=== PATIENT | male | born 2000 | race Caucasian/White ===

== ENCOUNTER 2020-09-21 11:11 | Outpatient (REF) | payer OTHER, SELFPAY | END 2020-09-21 11:12 | disposition home or self-care (01) | LOC: HO.LAB 11:11 | PROVIDERS: Visit Provider Internal Medicine | DX: Z20.828 Contact with and (suspected) exposure to other viral communicable diseases (principal) | CPT/HCPCS: C9803; U0003 ==

== ENCOUNTER 2020-10-02 17:01 | Outpatient (REF) | payer OTHER, SELFPAY | END 2020-10-02 17:02 | disposition home or self-care (01) | LOC: HO.LAB 17:01 | PROVIDERS: Visit Provider Internal Medicine | DX: Z20.828 Contact with and (suspected) exposure to other viral communicable diseases (principal) | CPT/HCPCS: C9803; U0003 ==

== ENCOUNTER → 2024-04-16 14:48 | Outpatient (BNVA) | payer SELFPAY | PROVIDERS: Visit Provider Registered Nurse | DX: Z02.79 Encounter for issue of other medical certificate (principal) ==

== ENCOUNTER 2024-06-06 21:18 | Emergency (ER) | payer OTHER, SELFPAY ==
--- NOTE | ~2024-06-06 | CT_ITS ---
EXAMINATION CT HEAD WITHOUT CONTRAST CLINICAL INFORMATION: Trauma COMPARISON: None TECHNIQUE: CT of the head was performed without intravenous contrast. Reformatted axial, coronal, and sagittal images were reviewed. This CT examination was performed using dose optimization techniques as appropriate, variously including the following: *Automated exposure control *Adjustment of mA and/or kV according to patient size (this includes techniques or standardized protocols for targeted exams where dose is matched to indication/reason for exam; i.e. extremities or head) *Use of iterative reconstruction technique DLP: 684 mGy-cm FINDINGS: No intracranial hemorrhage, extra-axial fluid collection, or midline shift is identified. Tamayo-white matter differentiation is preserved. The ventricles are within normal limits. Basal cisterns are within normal limits. Paranasal sinuses are clear. Mastoid air cells and middle ear cavities are clear. No acute calvarial fractures. CT/CT head/brain wo IV con IMPRESSION: No acute intracranial abnormality.
[2024-06-06 21:26] VITALS: BP 126/72; PULSE 65; RESP 16; TEMP 36.3; O2SAT 98; BMI 22.6
--- NOTE | 2024-06-06 23:22 | ED.GENADULT ---
HPI - General Adult General Chief complaint: Head Injury Stated complaint: ?concussion Time Seen by Provider: 06/06/24 22:19 Source: patient, RN notes reviewed and old records reviewed Mode of arrival: ambulatory Limitations: no limitations History of Present Illness ED Provider: Heather THOMPSON narrative: 24-year-old male with no significant past medical history presents for evaluation of a headache. Patient reports he was at work earlier today. He was at a construction site. He reports that he stood up and hit the back of his head on the bucket of the excavator He did not lose consciousness He complains of a posterior headache. He had some lightheadedness immediately after hitting his head. Denies any visual changes. He is not anticoagulated Related Data Allergies Allergy/AdvReac Type Severity Reaction Status Date / Time cet[facility]izine [facility] Allergy Itching Verified 06/06/24 21:28 Tree nuts Allergy Unknown hives Uncoded 06/08/17 00:00 Review of Systems Constitutional: Constitutional: Denies body ache(s), Denies chills, Denies fever(s), Denies frequent falls and Reports headache(s) Eyes: Eyes: Denies blurry vision ENT: Reports dizziness and Reports headache(s) Cardiovascular: Cardiovascular: Denies chest pain, Denies syncope and Denies dyspnea Respiratory: Respiratory: Denies cough and Denies dyspnea Gastrointestinal: Gastrointestinal: Denies abdominal pain, Denies nausea and Denies vomiting Musculoskeletal: Musculoskeletal: Denies back pain and Denies tingling Neurologic: Reports dizziness, Denies syncope, Denies frequent falls, Reports headache(s), Denies lack of coordination, Denies focal weakness, Denies Other visual disturbances, Denies radicular pain, Denies seizure-like activity, Denies tingling, Denies paresthesias and Denies tremor(s) PMFSH Social History Social History Advance Directives: No Advance Directives Information Provided: No Do you have a plan to hurt others: No Plan Physical Exam ED Vital Signs: Vital Signs - 24 hr 06/06/24 21:26 Temperature 97.3 F Pulse Rate 65 Respiratory Rate 16 Blood Pressure 126/72 Pulse Oximetry 98 Oxygen Delivery Method Room Air BMI result Body Mass Index 22.6 Const General: healthy appearing, comfortable, no acute distress, alert and awake Nutritional Appearance: well nourished Orientation/consciousness: patient oriented x3 HENMT Other: Aparicio sign negative Head: Yes normocephalic and Yes atraumatic (No abrasion, hematoma or open wounds to suggest trauma) Throat: Yes posterior oropharynx normal Eyes Eyelids: Yes eyelids normal Conjunctivae: conjunctivae normal Sclerae: sclerae normal Corneas: corneas normal Pupils: Equal, round and reactive pupils present EOM: EOMs intact bilaterally Neck Neck: Yes full ROM Resp Effort & Inspection: normal respiratory effort, able to speak in complete sentences, no audible wheezes and not labored Auscultation: clear to auscultation bilaterally Cardio Rate: regular rate Rhythm: regular rhythm GI Inspection: No distended Palpation (GI): Soft to palpation, not firm, nontender, no guarding and not rigid Auscultation: normoactive bowel sounds Skin General skin exam: no rashes or lesions noted and elasticity normal Neuro General: patient oriented x3 Cranial nerves: Yes CN's II-XII intact bilaterally, Yes Equal, round and reactive pupils present and Yes Bilaterally intact EOM present Cognition (Neuro): normal cognition Extrem Other: Moving all extremities well without any obvious deformities Medical Decision Making Medical Decision Making MDM Narrative: 24-year-old male presents for evaluation of posterior headache after striking the back of his head on an excavator. Not moving at the time, there was no loss of consciousness. The patient has no objective findings of trauma, an NIH stroke score of 0. I have a suspicion for traumatic brain injury. I discussed this with the patient and recommended symptomatic care only. The patient would like to have a CT scan done after discussing risks and benefits. Differential Diagnosis Differential Diagnoses: The differential diagnosis associated with the presentation includes Acute headache TBI less likely Concussion Calvarial fracture Independent Interpretation I performed an independent interpretation of an: CT Scan Interpretation: Agree with Radiology interpretation, no acute traumatic injury Radiology Impression Discussion of test interpretation with radiology: I have reviewed the radiologist's reading. Radiologist Impression: CT/CT head/brain wo IV con IMPRESSION: No acute intracranial abnormality. Discharge Plan Discharge Clinical Impression: Closed head injury Patient Disposition: Home, Self-Care Instructions: Head Injury (ED) Additional Instructions: Your CT scan did not show any concerning abnormalities. It is still possible that you have a concussion as this will not she will pending CT scan. I recommend avoiding strenuous activity until your symptoms resolved. Use ibuprofen or Tylenol for any further headaches Follow-up with your primary doctor Stand Alone Forms: Work/School Release Print Language: [place] Island[place]
[2024-06-07 00:02] VITALS: BP 115/62; PULSE 57; RESP 15; TEMP 36.4; O2SAT 99
[2024-06-07 00:03] VITALS: BP 115/62; PULSE 57; RESP 15; TEMP 36.4; O2SAT 99
== END 2024-06-07 00:04 | disposition home or self-care (01) ==
PROVIDERS: Emergency Provider Internal Medicine
DX: S06.0X0A Concussion without loss of consciousness, initial encounter (principal); R51.9 Headache, unspecified; Y29.XXXA Contact with blunt object, undetermined intent, initial encounter; Y93.89 Activity, other specified; Y92.69 Other specified industrial and construction area as the place of occurrence of the external cause; Y99.0 Civilian activity done for income or pay
CPT/HCPCS: 70450; 99284